=== PATIENT | female | born 1985 | race Caucasian/White ===

== ENCOUNTER 2018-05-13 00:08 | Inpatient (IN) | payer OTHER ==
[2018-05-13 00:09] VITALS: BMI 25.0
[2018-05-13 01:22] LABS: BASO # 0.1 K/uL (0.0-0.2); BASO % 1.4 % (0.0-2.0); EOS # 0.2 K/uL (0.0-0.7); HEMOGLOBIN 10.6 g/dL (11.0-16.0); LYMPH # 1.5 K/uL (1.0-4.3); LYMPH % 29.3 % (20.0-40.0); MEAN CELL VOLUME 86.4 fL (81.0-99.0); MEAN CORPUSCULAR HEMOGLOBIN 28.4 pg (27.0-31.0); MEAN CORPUSCULAR HGB CONC 32.9 g/dL (33.0-37.0); MEAN PLATELET VOLUME 8.8 fL (7.2-11.7); MONO # 0.5 K/uL (0.0-0.8); MONO % 10.2 % (0.0-10.0); NEUT # 2.9 K/uL (1.8-7.0); NEUT % 56.1 % (50.0-75.0); NRBC % 0.1 % (0.0-2.0); RBC 3.73 Mil/uL (3.80-5.20); WHITE BLOOD COUNT 5.1 K/uL (4.8-10.8)
--- NOTE | 2018-05-13 01:27 | C.PDOC ---
History Of Present Illness 32-year-old female presents to the ED for evaluation of dizziness, depression and suicidal ideation. Patient is requesting to speak with a psychiatrist. Patient states she saw her PMD twice, this week. upon my assesment states non complaint with bipolar. asks to speak to reena. Patient denies suicidal plan, chest pain, extremity numbness/weakness. Time Seen by Provider: 05/13/18 00:15 Chief Complaint (Nursing): Dizziness/Lightheaded History Per: Patient History/Exam Limitations: no limitations Current Symptoms Are (Timing): Still Present Additional History Per: Patient Past Medical History Reviewed: Historical Data, Nursing Documentation, Vital Signs Vital Signs: Last Vital Signs Temp 98.4 F 05/13/18 00:20 Pulse 60 05/13/18 04:04 Resp 16 05/13/18 04:04 BP 117/77 05/13/18 04:04 Pulse Ox 98 05/13/18 04:04 - Medical History PMH: Anxiety, Bipolar Disorder, Depression Denies: Diabetes, Hepatitis, HIV, HTN, Seizures, Sexually Transmitted Disease Surgical History: No Surg Hx - [facility] Procedures INDIVID PSYCHOTHERAP NEC (02/18/13) OTHER GROUP THERAPY (02/18/13) Family History: States: Unknown Family Hx - Social History Hx Alcohol Use: No Hx Substance Use: No - Immunization History Hx Tetanus Toxoid Vaccination: No Hx Influenza Vaccination: No Hx Pneumococcal Vaccination: No Review Of Systems Cardiovascular: Negative for: Chest Pain Neurological: Positive for: Dizziness. Negative for: Weakness, Numbness Psych: Positive for: Depression, Suicidal ideation. Negative for: Other ( suicidal plan ) Physical Exam - Physical Exam Appears: Non-toxic, No Acute Distress Skin: Normal Color, Warm, Dry Head: Atraumatic, Normacephalic Eye(s): bilateral: Normal Inspection Oral Mucosa: Moist Neck: Supple Chest: Symmetrical, No Deformity, No Tenderness Cardiovascular: Rhythm Regular, No Murmur Respiratory: Normal Breath Sounds, No Rales, No Rhonchi, No Wheezing Extremity: Normal ROM, Capillary Refill (less than 2 seconds ) Neurological/Psych: Oriented x3, Normal Speech, Normal Cognition ED Course And Treatment - Laboratory Results Result Diagrams: 05/13/18 01:13 05/13/18 01:13 ECG: Interpreted By Me, Viewed By Me ECG Rhythm: Sinus Bradycardia Interpretation Of ECG: Sinus bradycardia at rate 53bpm. Rate From EC O2 Sat by Pulse Oximetry: 99 (on RA) Pulse Ox Interpretation: Normal Medical Decision Making Medical Decision Making: pt reporst "dizziness" bu talso depressed with si. Progress: Bloodwork, urinalysis, and EKG ordered and reviewed. 0220: Patient has been medically cleared. Disposition - Disposition Disposition: HOSPITALIZED Disposition Time: 04:00 Condition: STABLE - Clinical Impression Clinical Impression: Bipolar 1 disorder, Dizziness - Scribe Statement The provider has reviewed the documentation as recorded by the Scribe (Sobeida Boles) Provider Attestation: All medical record entries made by the Scribe were at my direction and personally dictated by me. I have reviewed the chart and agree that the record accurately reflects my personal performance of the history, physical exam, medical decision making, and the department course for this patient. I have also personally directed, reviewed, and agree with the discharge instructions and disposition.
[2018-05-13 01:44] LABS: SQUAMOUS EPITHIAL 1 /hpf (0-5); URINE BACTERIA RARE (<OCC); URINE BILIRUBIN NEGATIVE (NEGATIVE); URINE BLOOD NEGATIVE (NEGATIVE); URINE CLARITY Clear (Clear); URINE COLOR Yellow (YELLOW); URINE GLUCOSE (UA) NORMAL (Normal); URINE LEUKOCYTE ESTERASE NEG Leu/uL (Negative); URINE PROTEIN NEGATIVE (NEGATIVE); URINE UROBILINOGEN NORMAL mg/dL (0.2-1.0)
[2018-05-13 01:46] LABS: HCG,QUALITATIVE URINE NEGATIVE (NEGATIVE)
[2018-05-13 02:00] LABS: BARBITURATES, UR NEGATIVE (NEGATIVE); BENZODIAZEPINES, UR NEGATIVE (NEGATIVE); OPIATES, UR NEGATIVE (NEGATIVE); PHENCYCLIDINE, UR NEGATIVE (NEGATIVE)
[2018-05-13 02:19] LABS: ALB/GLOB RATIO 1.3 (1.0-2.1); ALT/SGPT 25 U/L (9-52); AST/SGOT 17 U/L (14-36); BLOOD UREA NITROGEN 9 mg/dL (7-17); CALCIUM 8.7 mg/dl (8.6-10.4); GFR NON-AFRICAN AMERICAN > 60
[2018-05-13 02:20] LABS: ACETAMINOPHEN < 10.0 ug/mL (10.0-30.0); SALICYLATE < 1.0 mg/dL 1
[2018-05-13 05:18] VITALS: O2SAT 99
--- NOTE | 2018-05-13 06:58 | PCM.BM ---
<Pedro Carrington - Last Filed: 05/13/18 06:55> Treatment Plan Problems - Problems identified on initial assessmt DEPRESSION Date Initiated: 05/13/18 Time Initiated: 05:05 Assessment reference: NA Status: Active SUICIDAL IDEATION Date Initiated: 05/13/18 Time Initiated: 05:05 Assessment reference: NA Status: Active Treatment assets and liabiliti Patient Assests: adapts well, cooperative, self-reliant, ADL independent, good support system, negotiates basic needs, cognitively intact Patient Liabilities: financial problems, medical problems - Milieu Protocol Maintain good personal hygiene: daily Encourage regular showers, daily Remind patient to perform daily oral care, daily Assist patient to perform ADL's Maintain personal safety: every shift Educate patient to report safety concerns to staff, every shift Monitor environment for contraband/sharps Medication safety: Monitor for expected outcome, potential side effects: every shift, Assess barriers to learning: every shift, Assess readiness for medication education: every shift <Martín Wiggins - Last Filed: 05/14/18 10:49> - Diagnosis (1) Bipolar 1 disorder Status: Acute Interventions: 05/14/18 10:49 * Assess/adjust medications daily and /or as needed * See patient on an individual basis 7x/week to assess level of manic behaviors and stability * Discuss risks, benefits, side effects and alternatives of medications *
--- NOTE | 2018-05-13 10:58 | PCM.PSYCH ---
Initial Psychiatric Evaluation - Initial Psychiatric Evaluation Type of Admission: Voluntary Legal Status: Capacity Chief Complaint (in patient's own words): I was being depressed and suicidal History of Present Illness and Precipitating Events: Patient is a 32 years old female, , who is currently working full-time and lives with her , came to the hospital, initially with complain of depressed mood and suicidal ideation. Patient has history of multiple inpatient psychiatric hospitalizations. He was last discharged from [facility] in 2012. He has history of follow-up with [facility], last seen 2012. As per the patient she stopped taking her medications as she started feeling better in 2012. As per her, recently she started feeling irritable, agitated and depressed and went to see a medical doctor for panic attacks. Yesterday she started feeling dizziness and lightheadedness, and she became increasingly depressed and came to the hospital to get help. She reports depressed mood, feelings of hopelessness and helplessness, poor sleep and poor appetite. She also reports suicidal ideations 'on and off', with plan to jump off the roof of the building or to overdose on pills. She also reports at times, anxiety, irritability, agitation, panic attacks. However she denies any auditory or visual hallucinations or any paranoia. She denies any drinking or any substance abuse. Patient reports history of being on [place], Seroquel, Abilify, Depakote and Latuda in the past. PMH: Asthma Current Medications: Active Medications Generic Name Dose Route Start Last Admin Trade Name Freq PRN Reason Stop Dose Admin Pneumococcal Polyvalent Vaccine 0.5 ml 05/14/18 10:30 Pneumovax 23 Vaccine IM 05/14/18 10:31 .ONCE ONE Past Psychiatric History - Past Psychiatric History Previous Treatment History: Inpatient Pertinent Medical Hx (Current Medical&Sleep Prob, Allergies): Allergies Allergy/AdvReac Type Severity Reaction Status Date / Time No Known Allergies Allergy Verified 05/13/18 00:18 No Known Home Med 05/13/18 Review of Systems - Review of Systems All systems: reviewed and no additional remarkable complaints except - Psychiatric Psychiatric: Anxiety, Irritability, Mood Swings, Panic Attacks, Suicidal Ideation Mental Status Examination - Personal Presentation Personal Presentation: Looks stated age - Affect Affect: Constricted, Depressed - Motor Activity Motor Activity: Calm - Reliability in Providing Information Reliability in Providing Information: Fair - Speech Speech: Organized - Mood Mood: Depressed, Anxious - Formal Thought Process Formal Thought Process: No Impairment - Obsessions/Compulsions Obsessions: No Compulsions: No - Cognitive Functions Orientation: Person, Place, Situation, Time Sensorium: Alert Attention/Concentration: Attentive Abstract Thinking: [place] Estimate of Intelligence: Below average Judgement: Imparied, as evidence by: Poor judgement, Imparied, as evidence by: Lack of insight into illness - Risk Risk: Suicidal, Diminished functioning - Limitations Limitations: Living alone DSM 5 DX - DSM 5 DSM 5 Diagnosis: Bipolar 2 disorder with depressed mood - Recommended/Plan of Treatment Treatment Recommendations and Plan of Treatment: Bipolar 2 disorder with depressed mood CBT Psychoeducation and sense supportive therapy and group therapy Gabapentin 100 mg by mouth TID Abilify 5 mg daily at bedtime Trazodone 50 mg by mouth daily at bedtime Hydroxyzine 25 mg by mouth every 6 hours when necessary - Smoking Cessation Smoking Cessation Initiated: No
[2018-05-14] MEDS ORDERED: Pneumococcal 23-Valent Vaccine IM ONE (10:30)
--- NOTE | 2018-05-14 10:49 | PCM.PYCHPN ---
Psychiatric Progress Note - Psychiatric Progress Note Patient seen today, length of contact: 15 min Patient Chief Complaint: I was being depressed and suicidal.' Problems Identified/Issues Discussed: Patient seen and evaluated, chart reviewed and discussed with the nurse. Pt reports depressed mood, and reports feelings of hopelessness and helplessness. She still reports irritability and agitation. She remained isolated and withdrawn, and confined to his room. She denies any auditory hallucinations, visual hallucinations, or any paranoia. Patient is compliant with medications and denies any side effects. Symptoms are improving but pt needs more time to stabilize. Support and psychoeducation given. Medication Change: Yes Medical Record Reviewed: Yes Mental Status Examination - Cognitive Function Orientation: Person, Place, Situation, Time Memory: Intact Attention: WNL Concentration: Poor Association: WNL Fund of Knowledge: Poor - Mood Mood: Depressed, Anxious - Affect Affect: Constricted, Depressed - Formal Thought Process Formal Thought Process: No Impairment - Suicidal Ideation Suicidal Ideation: No - Homicidal Ideation Homicidal Ideation: No Goal/Treatment Plan - Goal/Treatment Plan Need for Continued Stay: Severe depression anxiety, Severe functional impairment Progress Toward Problem(s) and Goals/Treatment Plan: Bipolar 2 disorder with depressed mood CBT Psychoeducation and sense supportive therapy and group therapy Gabapentin 100 mg by mouth TID Abilify 5 mg daily at bedtime Trazodone 50 mg by mouth daily at bedtime Hydroxyzine 25 mg by mouth every 6 hours when necessary - Smoking Cessation Smoking Cessation Initiated: No
--- NOTE | 2018-05-15 11:12 | PCM.PYCHPN ---
Psychiatric Progress Note - Psychiatric Progress Note Patient seen today, length of contact: 16 min Patient Chief Complaint: I was being depressed.' Problems Identified/Issues Discussed: Patient seen and evaluated, chart reviewed and discussed with the nurse. Per staff, pt remained depressed mood, and still reports feelings of hopelessness and helplessness. She remained isolated and withdrawn, and confined to his room. She denies any auditory hallucinations, visual hallucinations, or any paranoia. Patient is compliant with medications and denies any side effects. Symptoms are improving but pt needs more time to stabilize. Support and psychoeducation given. Medication Change: Yes Medical Record Reviewed: Yes Mental Status Examination - Cognitive Function Orientation: Person, Place, Situation, Time Memory: Intact Attention: WNL Concentration: Poor Association: WNL Fund of Knowledge: Poor - Mood Mood: Depressed, Anxious - Affect Affect: Constricted, Depressed - Speech Speech: Soft - Formal Thought Process Formal Thought Process: No Impairment - Suicidal Ideation Suicidal Ideation: No - Homicidal Ideation Homicidal Ideation: No Goal/Treatment Plan - Goal/Treatment Plan Need for Continued Stay: Severe depression anxiety, Severe functional impairment Progress Toward Problem(s) and Goals/Treatment Plan: Bipolar 2 disorder with depressed mood CBT Psychoeducation and sense supportive therapy and group therapy Gabapentin 100 mg by mouth TID Abilify 5 mg daily at bedtime Trazodone 50 mg by mouth daily at bedtime Hydroxyzine 25 mg by mouth every 6 hours when necessary - Smoking Cessation Smoking Cessation Initiated: No
[2018-05-15] MEDS ORDERED: Ondansetron Hcl 2 mg/2.5 ml Oral Sol PO PRN (18:03)
[2018-05-15] MEDS ORDERED: Magnesium Hydroxide Susp 30 ml UD PO ONE (18:10)
--- NOTE | 2018-05-16 23:30 | PCM.PYCHPN ---
Psychiatric Progress Note - Psychiatric Progress Note Patient seen today, length of contact: 15 min Patient Chief Complaint: "Not well" Problems Identified/Issues Discussed: The pt is seen, chart reviewed, case discussed with staff. The pt is compliant with medications and reports no side-effects. Symptoms are improving but needs more time to stabilize. After care discussed, support and psychoeducation given. Medication Change: Yes Medical Record Reviewed: Yes Mental Status Examination - Cognitive Function Orientation: Person, Place, Situation, Time Memory: Intact Attention: WNL Concentration: Poor Association: WNL Fund of Knowledge: WNL - Mood Mood: Depressed, Anxious - Affect Affect: Constricted - Speech Speech: Appropriate - Formal Thought Process Formal Thought Process: No Impairment - Suicidal Ideation Suicidal Ideation: No - Homicidal Ideation Homicidal Ideation: No Goal/Treatment Plan - Goal/Treatment Plan Need for Continued Stay: Discharge may exacerbated symptoms, Severe functional impairment Progress Toward Problem(s) and Goals/Treatment Plan: Continue medications Support and psychoeducation daily Attend groups and activities daily After care planning by [employer]
--- NOTE | 2018-05-17 11:54 | CARD ---
APPROVED REPORT Date of service: 05/13/2018 EKG Measurement Heart [id number] <Conclusion> Sinus bradycardia Otherwise normal ECG
[2018-05-18 06:26] VITALS: BP 108/67; PULSE 73; RESP 20; TEMP 98.9
--- NOTE | 2018-05-18 09:59 | PCM.PYCHPN ---
Psychiatric Progress Note - Psychiatric Progress Note Patient seen today, length of contact: 16 min Patient Chief Complaint: I was being depressed.' Problems Identified/Issues Discussed: Patient seen and evaluated, chart reviewed and discussed with the nurse. Per sta ff, pt remained depressed mood, and still reports feelings of hopelessness and helplessness. She remained isolated and withdrawn, and confined to his room. She denies any auditory hallucinations, visual hallucinations, or any paranoia. Patient is compliant with medications and denies any side effects. Symptoms are improving but pt needs more time to stabilize. Support and psychoeducation given. Medication Change: Yes Medical Record Reviewed: Yes Mental Status Examination - Cognitive Function Orientation: Person, Place, Situation, Time Memory: Intact Attention: WNL Concentration: Poor Association: WNL Fund of Knowledge: Poor - Mood Mood: Depressed, Anxious - Affect Affect: Constricted, Depressed - Speech Speech: Soft - Formal Thought Process Formal Thought Process: No Impairment - Suicidal Ideation Suicidal Ideation: No - Homicidal Ideation Homicidal Ideation: No Goal/Treatment Plan - Goal/Treatment Plan Need for Continued Stay: Severe depression anxiety, Severe functional impairment Progress Toward Problem(s) and Goals/Treatment Plan: Bipolar 2 disorder with depressed mood CBT Psychoeducation and sense supportive therapy and group therapy Gabapentin 100 mg by mouth TID Abilify 5 mg daily at bedtime Trazodone 50 mg by mouth daily at bedtime Hydroxyzine 25 mg by mouth every 6 hours when necessary
--- NOTE | 2018-05-18 10:05 | PCM.PYCHDC ---
Mental Status Examination - Mental Status Examination Orientation: Person, Place, Situation, Time Memory: Intact Mood: Neutral Affect: Constricted Speech: Soft Attention: WNL Concentration: WNL Association: WNL Fund of Knowledge: WNL Formal Thought Process: No Impairment Description of patient's judgement and insight: good, fair Psychotic Thoughts and Behaviors: denies any AVH Suicidal Ideation: No Current Homicidal Ideation?: No Discharge Summary - Discharge Note Reason for Hospitalization: Patient is a 32 years old female, , who is currently working full-time and lives with her , came to the hospital, initially with complain of depressed mood and suicidal ideation. Patient has history of multiple inpatient psychiatric hospitalizations. He was last discharged from [facility] in 2012. He has history of follow-up with [facility], last seen 2012. As per the patient she stopped taking her medications as she started feeling better in 2012. As per her, recently she started feeling irritable, agitated and depressed and went to see a medical doctor for panic attacks. Yesterday she started feeling dizziness and lightheadedness, and she became increasingly depressed and came to the hospital to get help. She reports depressed mood, feelings of hopelessness and helplessness, poor sleep and poor appetite. She also reports suicidal ideations 'on and off', with plan to jump off the roof of the building or to overdose on pills. She also reports at times, anxiety, irritability, agitation, panic attacks. However she denies any auditory or visual hallucinations or any paranoia. She denies any drinking or any substance abuse. Patient reports history of being on [place], Seroquel, Abilify, Depakote and Latuda in the past. Consultations:: List each consultation separately and include: 1. Reason for request. 2. Findings. 3. Follow-up Summary of Hospital Course include:: 1. Description of specific treatment plan utilized for patients during their course of treatmen. 2. Summarize the time- course for resolution of acute symptoms and/or regressed behaviors. 3. Describe issues identified and worked on during hospitalization. 4. Describe medication utilized. 5. Describe medical problems identified and treated. 6. Reassessment of suicide risk Summary of Hospital Course: Patient is a 32 years old female, , who is currently working full-time and lives with her , came to the hospital, initially with complain of depressed mood and suicidal ideation. Patient has history of multiple inpatient psychiatric hospitalizations. He was last discharged from [facility] in 2012. He has history of follow-up with [facility], last seen 2012. As per the patient she stopped taking her medications as she started feeling better in 2012. As per her, recently she started feeling irritable, agitated and depressed and went to see a medical doctor for panic attacks. Yesterday she started feeling dizziness and lightheadedness, and she became increasingly depressed and came to the hospital to get help. She reports depressed mood, feelings of hopelessness and helplessness, poor sleep and poor appetite. She also reports suicidal ideations 'on and off', with plan to jump off the roof of the building or to overdose on pills. She also reports at times, anxiety, irritability, agitation, panic attacks. However she denies any auditory or visual hallucinations or any paranoia. She denies any drinking or any substance abuse. Patient reports history of being on [place], Seroquel, Abilify, Depakote and Latuda in the past. PMH: Asthma - Diagnosis (1) Bipolar 1 disorder Current Visit: Yes Status: Acute - Final Diagnosis (DSM 5) Condition upon Discharge: STABLE DSM 5: Bipolar 2 disorder with depressed mood Disposition: HOME/ ROUTINE Follow-up Treatment Plan: Bipolar 2 disorder with depressed mood CBT Psychoeducation and sense supportive therapy and group therapy Gabapentin 100 mg by mouth TID Abilify 5 mg daily at bedtime Trazodone 50 mg by mouth daily at bedtime Hydroxyzine 25 mg by mouth every 6 hours when necessary Prescriptions/Medication Reconciliation: ARIPiprazole [Abilify] 5 mg PO HS #30 tab PARoxetine [Paxil] 20 mg PO DAILY #30 tab traZODone [Desyrel] 50 mg PO HS #30 tab - Smoking Cessation Smoking Cessation Medication prescribed: No - Antipsychotic Medications Pt discharged on 2 or more routine antipsychotic medications: No
== END 2018-05-18 13:07 | disposition home or self-care (01) | DRG 885 ==
LOC: C.ER 00:08 → C.5E 03:51
PROVIDERS: ADMIT Psychiatry & Neurology Psychiatry; ATTEND Psychiatry & Neurology Psychiatry
PROC: GZ3ZZZZ Medication Management (ICD-10-PCS; principal; 2018-05-13)
PROC: GZHZZZZ Group Psychotherapy (ICD-10-PCS; 2018-05-13)
PROC: GZ56ZZZ Individual Psychotherapy, Supportive (ICD-10-PCS; 2018-05-13)
DX: F31.81 Bipolar II disorder (principal); R45.851 Suicidal ideations; F41.0 Panic disorder [episodic paroxysmal anxiety]; J45.909 Unspecified asthma, uncomplicated; Z79.899 Other long term (current) drug therapy; Z91.14 Patient's other noncompliance with medication regimen